=== PATIENT | male | born 1995 | race Caucasian/White ===

== ENCOUNTER 2021-09-05 08:16 | Emergency (ER) | payer MEDICAID ==
[~2021-09-05] VITALS: Ht 175.3 cm; Wt 88.0 kg
[2021-09-05] MEDS ORDERED: IBUPROFEN 600MG TABLET PO ONE (09:00)
[2021-09-05] MEDS ORDERED: IBUP-2029 MT (09:52)
[2021-09-05 10:00] VITALS: BP 121/77
== END 2021-09-05 10:28 | disposition home or self-care (01) ==
LOC: ER 08:16
DX: S52.514A Nondisplaced fracture of right radial styloid process, initial encounter for closed fracture (principal); Z98.890 Other specified postprocedural states; X58.XXXA Exposure to other specified factors, initial encounter; Y93.89 Activity, other specified; Y92.89 Other specified places as the place of occurrence of the external cause; Y99.8 Other external cause status
CPT/HCPCS: 29125; 73110; 99283